=== PATIENT | female | born 1970 | race Two or more races ===

== ENCOUNTER → 2020-06-07 14:12 | Outpatient (BNVA) | payer OTHER, SELFPAY | PROVIDERS: Visit Provider Internal Medicine | DX: S60.222A Contusion of left hand, initial encounter (principal); W01.0XXA Fall on same level from slipping, tripping and stumbling without subsequent striking against object, initial encounter | CPT/HCPCS: 99202 ==

== ENCOUNTER → 2020-06-09 13:26 | Outpatient (BNVA) | payer OTHER, SELFPAY | PROVIDERS: Visit Provider Internal Medicine | DX: M24.812 Other specific joint derangements of left shoulder, not elsewhere classified (principal); S16.1XXA Strain of muscle, fascia and tendon at neck level, initial encounter; W01.0XXA Fall on same level from slipping, tripping and stumbling without subsequent striking against object, initial encounter | CPT/HCPCS: 72050; 99214 ==

== ENCOUNTER → 2020-06-14 14:43 | Outpatient (BNVA) | payer OTHER, SELFPAY | PROVIDERS: Visit Provider Internal Medicine | DX: S16.1XXD Strain of muscle, fascia and tendon at neck level, subsequent encounter (principal); W18.30XD Fall on same level, unspecified, subsequent encounter | CPT/HCPCS: 99213 ==

== ENCOUNTER → 2020-06-16 14:33 | Outpatient (BNVA) | payer OTHER, SELFPAY | PROVIDERS: Visit Provider Internal Medicine | DX: S16.1XXD Strain of muscle, fascia and tendon at neck level, subsequent encounter (principal); S39.012D Strain of muscle, fascia and tendon of lower back, subsequent encounter; X58.XXXD Exposure to other specified factors, subsequent encounter | CPT/HCPCS: 99213 ==

== ENCOUNTER → 2020-06-27 14:17 | Outpatient (BNVA) | payer OTHER, SELFPAY | PROVIDERS: Visit Provider Internal Medicine | DX: S46.812D Strain of other muscles, fascia and tendons at shoulder and upper arm level, left arm, subsequent encounter (principal); W18.30XD Fall on same level, unspecified, subsequent encounter | CPT/HCPCS: 99213 ==

== ENCOUNTER → 2020-07-11 14:52 | Outpatient (BNVA) | payer OTHER, SELFPAY | PROVIDERS: Visit Provider Internal Medicine | DX: S29.012D Strain of muscle and tendon of back wall of thorax, subsequent encounter (principal); S16.1XXD Strain of muscle, fascia and tendon at neck level, subsequent encounter; W18.30XD Fall on same level, unspecified, subsequent encounter | CPT/HCPCS: 99213 ==

== ENCOUNTER → 2020-07-25 14:54 | Outpatient (BNVA) | payer OTHER, SELFPAY | PROVIDERS: Visit Provider Internal Medicine | DX: M25.512 Pain in left shoulder (principal); M54.6 Pain in thoracic spine; Z91.81 History of falling | CPT/HCPCS: 99213 ==

== ENCOUNTER 2020-08-18 15:00 | Outpatient (RCR) | payer OTHER, SELFPAY ==
--- NOTE | 2020-06-28 15:56 | MHC.PT.EP ---
[facility] [place] [facility] [place] [facility] [address] Michael Mac [address] [phone] F: [phone] F: [phone] F: [phone] F: [phone] Physical Therapy Plan of Care Date of Evaluation: 06/28/20 Date of Surgery: Diagnosis: cervical and back spasms - fall Assessment: 49 y/o RHD female referred to PT s/p fall at work for 'neck and back spasm.' Injury occured 06/06/2020 when she walked into her office on a rainy day. She slipped and fell on wet floor landing on B knees and L outstretched arm. Reports she felt instant numbness down her L UE into L thumb. She went to work connection that day. Imaging done (pt states normal). Her pain travels from L cervical region into L shoulder, elbow, and to the wrist. States she has a lot of 'tension' in her L neck/shoulder/scapula, but no more numbness. She works in [employer] and is currently working 4 hours/day. Restrictions include moderate duty (no lifting). WOrk duties include typing. Pain with reaching, typing, moving, sleeping, lifting. Examination shows decreased cervical AROM, decreased L shoulder AROM, decreased strength L shoulder/elbow, increased tissue tension, muscle guarding, and impaired postural awareness. Recommend PT 3x/week for 3 weeks to address impairments, implement HEP, and optimize functional mobility. Frequency and Duration: The patient will be seen 3x/week for 3 weeks Short Term Goals: 2 weeks: 1. I with HEP 2. Improve cervical rotation AROM to 45 B 3. Improve cervical flexion to 45 4. Improve L shoulder flexion aROM to 130 [facility] Goals: 3 weeks:: 1. I with HEP and self management with sx 2. Pt will be able to reach overhead with L UE and pain < 2/10 3. Pt will be able to lift 15# with pain < 3/10 and proper mechanics Treatment Plan: Modalities to reduce pain, spasms and effusion. Manual therapy to restore motion and function. Therapeutic exercise to improve strength and flexibility. Neuromuscular re-education for posture and balance. Therapeutic activities to return to functional activities of daily living. Please sign and return to therapist. Thank you for your referral.
--- NOTE | 2020-07-26 16:11 | MHC.PT.RE ---
[facility] [place] Office [place] Office [place] Office [address] Michael Mac [address] [phone] F: [phone] F: [phone] F: [phone] F: [phone] Physical Therapy Re-evaluation Diagnosis: cervical and back spasms - fall Date of Surgery: NA Date of Evaluation: 06/28/20 Treatments to Date: 9 Cancellations to Date: 0 No Shows to Date: 0 Subjective: Reports soreness from seeing Dr. Yuan yesterday. She is still working 4 hours/day. She has an appointment with [facility] tomorrow. Pain Score: 6 Pain Location: L cervical, L shoulder, L thoracic PVM, scapula Objective Measures: Cervical AROM: flexion 32, extension 45, R SB 28, L SB 35. Rotation R 40, L 36 Shoulder AROM: R UE WFL, L flexion 150, abduction 90, apley ER occiput, apley IR piriformis Resisted tests: shoulder 4+/5 throughout except L ER 4/5, L shoulder extension/flexion/abduction 4/5 Assessment: Reports very sore today. She saw Dr. White yesterday and he pushed on her head in which she reports gave her a headache and is now worse. States she continues to have difficulty with reaching overhead c L UE, lifting, sleeping, and standing/sitting upright with good posture. States she gets lots of spasms throughout the day. Cervical roll and moist heat helps decrease her pain. She demonstrates gradual improvement with cervical AROM and shoulder AROM. Shoulder strength has improved significantly as well. She continues to have soft tissue restrictions throughout thoracic spine and L scapular region as well as increased pain. Posture continues to demonstrate forward head and thoracic kyphosis. Pt is working on posture and using her lumbar roll at work. She is now able to reach overhead but with pain. She is performing HEP and I at this time. She is making progress and would benefit from continued PT 2x/week for 4 more weeks to progress soft tissue mobility, posture, cervical ROM, shoulder functional ER/IR ROM, and functional mobility. Short Term Goals: 2 weeks: 1. I with HEP - met 2. Improve cervical rotation AROM to 45 B - not met 3. Improve cervical flexion to 45 - not met 4. Improve L shoulder flexion aROM to 130 - met 5. Pt will be demonstrate apley ER to C5 in order to be able to groom with B UE [employer] Facility Examiner Goals: 3 weeks:: 1. I with HEP and self management with sx - progressing 2. Pt will be able to reach overhead with L UE and pain < 2/10 - progressing as pt able to reach overhead but with pain 3-6/10 3. Pt will be able to lift 15# with pain < 3/10 and proper mechanics 4. Pt will be able to sit with neutral posture > 45 min with pain < 3/10 Frequency and Duration: The patient will be seen 2x/week for 4 additional weeks Treatment Plan: Therapeutic Exercise Dynamic Therapeutic Activities Neuromuscular Re-ed Manual Therapies Joint Mobilization Home Exercise Program Patient Education Electrical Stimulation Hot or Cold Pack Reviewed/ Agreed with Student Documentation: N/A Therapist: Electronically signed by: Ana Maria Guillermo PT Please sign and return to therapist. Thank you for your referral.
--- NOTE | 2020-08-24 11:23 | MHC.PT.DC ---
[facility] [place] Office [place] Office [place] Office [address] [phone] F: [phone] F: [phone] F: [phone] F: [phone] Physical Therapy Discharge Report Diagnosis: cervical and back spasms - fall Date of Surgery: NA Date of Evaluation: 06/28/20 Date of Discharge: 08/23/20 Treatments to Date: 11 Cancellations to Date: 2 No Shows to Date: 0 Discharge Status: Other Discharge Summary: Amina, the nurse director of casework called and asked to cancel all remaining visits and to discharge the patient at this time. No other reason was given for discharge. Pt was re-evaluated on 07/26 and has only attended two visits (08/16 and 08/18) since re-evaluation (both visits she arrived late). Electronically signed by: Ana Maria Guillermo PT, DPT Please sign and return to therapist. Thank you for your referral.
== END 2020-08-24 11:25 | disposition other institution (70) ==
LOC: HO.PT 15:00
PROVIDERS: Visit Provider Internal Medicine
DX: S13.9XXD Sprain of joints and ligaments of unspecified parts of neck, subsequent encounter (principal); S39.012D Strain of muscle, fascia and tendon of lower back, subsequent encounter; Z91.81 History of falling
CPT/HCPCS: 97014; 97110; 97140; 97161; 97164